=== PATIENT | male | born 1970 | race Caucasian/White ===

== ENCOUNTER 2017-02-09 07:10 | Emergency (ER) | payer BC ==
[2017-02-09 07:26] VITALS: BP 159/113
--- NOTE | 2017-02-09 07:38 | EDM.PDOC ---
ED HPI ENT - General Chief Complaint: ENT Problem Stated Complaint: TOOTH PAIN Time Seen by Provider: 02/09/17 07:29 Source of Information: Reports: Patient History Limitations: Reports: No limitations - History of Present Illness INITIAL COMMENTS - FREE TEXT/NARRATIVE: The patient presents with right upper jaw dental pain. This started this morning. He has had pain on and off for a few months. He is going to get some teeth pulled in in April. He denies any fever or chills. Timing/Duration: Reports: Hour(s): (this morning) Severity: severe Location: Reports: mouth Quality: Reports: Sharp Improves with: Reports: None Worsens with: Reports: None Associated Symptoms: Reports: no other symptoms - Related Data Allergies/ADRs: Allergies Allergy/AdvReac Type Severity Reaction Status Date / Time No Known Allergies Allergy Verified 02/09/17 07:26 Home Meds: Home Meds Calcium Citrate/Vitamin D3 [Calcium Citrate + D] 1 tab PO DAILY 02/09/17 [ History] Cholecalciferol (Vitamin D3) [Vitamin D3] 2,000 unit PO DAILY 02/09/17 [History] Lisinopril [Prinivil] 20 mg PO DAILY 02/09/17 [History] Omeprazole Magnesium [Prilosec Otc] 20 mg PO DAILY 02/09/17 [History] Penicillin V Potassium 500 mg PO Q6HR #40 tab 02/09/17 [Rx] Simvastatin [Zocor] 20 mg PO BEDTIME 02/09/17 [History] Tadalafil [Cialis] 5 mg PO DAILY 02/09/17 [History] metFORMIN [Glucophage] 1,000 mg PO BID 02/09/17 [History] oxyCODONE HCl/Acetaminophen [Percocet 5-325 mg Tablet] 1 - 2 each PO Q6HR PRN # 20 tablet 02/09/17 [Rx] Past Medical History Cardiovascular History: Reports: High cholesterol, Hypertension Gastrointestinal History: Reports: GERD Endocrine/Metabolic History: Reports: Diabetes, type II - Past Surgical History GI Surgical History: Reports: Appendectomy, Hernia, inguinal ED ROS ENT - Review of Systems Review Of Systems: See Below Constitutional: Reports: no symptoms HEENT: Reports: Dental pain Respiratory: Reports: No Symptoms Cardiovascular: Reports: No symptoms Endocrine: Reports: no symptoms GI/Abdominal: Reports: No symptoms : Reports: no symptoms Musculoskeletal: Reports: no symptoms ED EXAM, ENT - Physical Exam Exam: See Below Exam Limited By: No limitations General Appearance: alert, no apparent distress Ears: normal external exam Nose: normal inspection Mouth/Throat: Other (Pain upon palption to the right upper jaw. 2nd molar and premolar affected.) Course - Vital Signs Last Recorded V/S: Last Vital Signs Temp 97.9 F 02/09/17 07:22 Pulse 83 02/09/17 07:22 Resp 16 02/09/17 07:22 BP 159/113 H 02/09/17 07:22 Pulse Ox 98 02/09/17 07:22 Departure - Departure Time of Disposition: 07:40 Disposition: Home, Self-Care 01 Condition: good Clinical Impression: Dental abscess, Dental caries, Pain, dental Prescriptions: Penicillin V Potassium 500 mg PO Q6HR #40 tab oxyCODONE HCl/Acetaminophen [Percocet 5-325 mg Tablet] 1 - 2 each PO Q6HR PRN # 20 tablet PRN Reason: Pain Forms: ED Department Discharge Additional Instructions: Follow up with your dentist back home. Take the penicillin 4 times per day and the percocet every 6 hours as needed for pain. Please return if you are worse.
== END 2017-02-09 07:47 | disposition home or self-care (01) ==
LOC: JD.ED 07:10
DX: K04.7 Periapical abscess without sinus (principal); K02.9 Dental caries, unspecified; E78.00 Pure hypercholesterolemia, unspecified; I10 Essential (primary) hypertension; K21.9 Gastro-esophageal reflux disease without esophagitis; E11.9 Type 2 diabetes mellitus without complications; Z79.899 Other long term (current) drug therapy; Z90.49 Acquired absence of other specified parts of digestive tract
CPT/HCPCS: 99283

== ENCOUNTER 2017-04-02 21:03 | Emergency (ER) | payer BC ==
[2017-04-02 21:27] VITALS: BP 165/110
--- NOTE | 2017-04-02 22:23 | EDM.PDOC ---
ED HPI GENERAL MEDICAL PROBLEM - General Chief Complaint: ENT Problem Stated Complaint: TOOTH PAIN Time Seen by Provider: 04/02/17 22:01 Source of Information: Reports: Patient, Old Records ([facility] ER visit) History Limitations: Reports: No Limitations - History of Present Illness INITIAL COMMENTS - FREE TEXT/NARRATIVE: 47-year-old male presents for evaluation treatment of dental pain. Patient reports that he is in need of having all his teeth pulled but he has been on Fosamax and must wait a few more weeks before he can have his teeth pulled. He does have a dental appointment with his primary dentist in [place] in the near future. He states he is in [place] for work as he works 14 days on and 14 days off. He just got [place] prior to coming to the ER. He reports on his way to [place] he developed severe pain on the bilateral upper teeth extending up into his jaw and towards his temples. He denies any bad taste in his mouth. He denies any fevers, nausea or vomiting. Patient reports that he experienced similar symptoms in January. He was seen in our ER. He was prescribed Percocet and penicillin. He states that the penicillin resolved his symptoms. bilateral jaw Pain Score (Numeric/FACES): 7 - Related Data Allergies Allergy/AdvReac Type Severity Reaction Status Date / Time No Known Allergies Allergy Verified 04/02/17 21:26 Home Meds: Home Meds Calcium Citrate/Vitamin D3 [Calcium Citrate + D] 1 tab PO DAILY 02/09/17 [ History] Cholecalciferol (Vitamin D3) [Vitamin D3] 2,000 unit PO DAILY 02/09/17 [History] Lisinopril [Prinivil] 20 mg PO DAILY 02/09/17 [History] Omeprazole Magnesium [Prilosec Otc] 20 mg PO DAILY 02/09/17 [History] Simvastatin [Zocor] 20 mg PO BEDTIME 02/09/17 [History] Tadalafil [Cialis] 5 mg PO DAILY 02/09/17 [History] metFORMIN [Glucophage] 1,000 mg PO BID 02/09/17 [History] Past Medical History HEENT History: Reports: Other (See Below) Other HEENT History: dental work Cardiovascular History: Reports: High Cholesterol, Hypertension Gastrointestinal History: Reports: GERD Endocrine/Metabolic History: Reports: Diabetes, Type II - Past Surgical History GI Surgical History: Reports: Appendectomy, Hernia, Inguinal Social & Family History - Family History Family Medical History: Noncontributory - Tobacco Use Smoking Status *Q: Never Smoker - Caffeine Use Caffeine Use: Reports: Coffee - Recreational Drug Use Recreational Drug Use: No ED ROS ENT - Review of Systems Review Of Systems: See Below Constitutional: Denies: Fever HEENT: Reports: Dental Pain (maxillary, bilateral), Other (denies any bad taste in the mouth). Denies: Ear Pain GI/Abdominal: Denies: Nausea, Vomiting Neurological: Reports: Headache ED EXAM, ENT - Physical Exam Exam: See Below Exam Limited By: No Limitations General Appearance: Alert, WD/WN, No Apparent Distress Ears: Normal External Exam, Normal Canal, Hearing Grossly Normal, Normal TMs Nose: Normal Inspection Mouth/Throat: Normal Inspection, Dental Tenderness (#3, #14), Gum Swelling ( with associated erythema and regression), Other (#4 absent). No: Dental Abcess , Dental Trauma, Hoarse Voice, Muffled Voice Neck: Normal Inspection, Supple, Non-Tender. No: Lymphadenopathy (L), Lymphadenopathy (R) Respiratory/Chest: No Respiratory Distress, Lungs Clear, Normal Breath Sounds Cardiovascular: Normal Peripheral Pulses, Regular Rate, Rhythm, No Murmur Course - Vital Signs Last Recorded V/S: Last Vital Signs Temp 36.7 C 04/02/17 21:23 Pulse 87 04/02/17 21:23 Resp 18 04/02/17 21:23 BP 165/110 H 04/02/17 21:23 Pulse Ox 96 04/02/17 21:23 Departure - Departure Time of Disposition: 22:18 Disposition: Home, Self-Care 01 Condition: Fair Clinical Impression: Dental caries, Pain, dental, Gingivitis - Discharge Information Instructions: Dental Caries Referrals: PCP,Not In Area [Primary Care Provider] - Forms: ED Department Discharge Additional Instructions: RX for percocet 1-2 tabs PO every 4-6 hours prn pain #10 Rx for pen VK 500mg 1 tab PO every 6 hours #30 Rx given through [facility] Follow-up with dental as planned. Ibuprofen [id number] for pain. Percocet 1-2 tabs every 4-6 hours as needed for severe pain. No driving or operating machinery within 12 hours of taking the Percocet. Percocet can be habit-forming, I recommend you take as few as needed to control your pain. Penicillin VK 1 tablet every 6 hours for 10 days. I recommend you take this with food. Please return to the ER if your symptoms change or worsen.
== END 2017-04-02 22:29 | disposition home or self-care (01) ==
LOC: JD.ED 21:03
DX: K02.9 Dental caries, unspecified (principal); K05.10 Chronic gingivitis, plaque induced; E78.00 Pure hypercholesterolemia, unspecified; I10 Essential (primary) hypertension; K21.9 Gastro-esophageal reflux disease without esophagitis; E11.9 Type 2 diabetes mellitus without complications; Z79.899 Other long term (current) drug therapy; Z79.84 Long term (current) use of oral hypoglycemic drugs; Z90.49 Acquired absence of other specified parts of digestive tract
CPT/HCPCS: 99283